=== PATIENT | female | born 1975 | race Caucasian/White ===

== ENCOUNTER → 2021-02-21 | Outpatient (CLI) | payer OTHER ==
[~2021-02-21] MED LIST: LORA10TA75 PO
== END | disposition home or self-care (01) ==
LOC: STAR 08:07
PROVIDERS: ATTEND Obstetrics & Gynecology
DX: Z20.822 Contact with and (suspected) exposure to COVID-19 (principal); N92.0 Excessive and frequent menstruation with regular cycle; N94.6 Dysmenorrhea, unspecified
CPT/HCPCS: U0003; U0005

== ENCOUNTER 2021-02-27 10:55 | Day surgery (SDC) | payer OTHER ==
[~2021-02-27] VITALS: Ht 172.7 cm; Wt 92.4 kg
[2021-02-27 11:12] VITALS: BP 121/85
[2021-02-27] MEDS ORDERED: ACETAMINOPHEN 500 MG TABLET ONE (11:27)
[2021-02-27] MEDS ORDERED: GABAPENTIN 300 MG CAPSULE ONE (11:28)
[2021-02-27] MEDS ORDERED: PHENAZOPYRIDINE 200 MG TABLET ONE (11:29)
[2021-02-27] MEDS ORDERED: GABAPENTIN 300 MG CAPSULE PO ONE (11:30)
[2021-02-27] MEDS ORDERED: LACTATED RINGERS 1,000 ML IV SCH (11:30)
[2021-02-27] MEDS ORDERED: CHLORHEXIDINE 15 ML UDC PO ONE (11:30)
[2021-02-27] MEDS ORDERED: PHENAZOPYRIDINE 200 MG TABLET PO ONE (11:30)
[2021-02-27] MEDS ORDERED: ACETAMINOPHEN 500 MG TABLET PO ONE (11:30)
[2021-02-27 11:32] LABS: HCG UR SG 1.015 (1.003-1.030)
[2021-02-27] MEDS ORDERED: FENTANYL PF 250 MCG/5ML ONE (11:57)
[2021-02-27] MEDS ORDERED: MIDAZOLAM 1 MG/ML, 2ML ONE (11:57)
[2021-02-27] MEDS ORDERED: PROPOFOL 10 MG/ML, 20ML ONE (11:59)
[2021-02-27] MEDS ORDERED: ROCURONIUM 10MG/ML,5ML ONE (12:00)
[2021-02-27] MEDS ORDERED: LIDOCAINE-MPF 2% ,5ML ONE (12:01)
[2021-02-27] MEDS ORDERED: BUPIVACAINE/PF 0.25% ONE (12:30)
[2021-02-27] MEDS ORDERED: EPINEPHRINE 1 MG/ML, 1ML ONE (12:30)
[2021-02-27] MEDS ORDERED: SODIUM CHLORIDE 0.9% 0 ML ONE (12:30)
[2021-02-27] MEDS ORDERED: VASOPRESSIN 20 UNIT/ML, 1ML ONE (12:31)
[2021-02-27] MEDS ORDERED: OXYcodone 5 MG/5 ML ORAL.SOL UDC PO PRN (13:00)
[2021-02-27] MEDS ORDERED: PROMETHAZINE 25 MG/ML, 1ML IVPush PRN (13:00)
[2021-02-27] MEDS ORDERED: HYDROmorphone 1 MG/ML, 1ML INJ IVPush PRN (13:00)
[2021-02-27] MEDS ORDERED: MEPERIDINE/PF 25MG/0.5ML IVPush PRN (13:00)
[2021-02-27] MEDS ORDERED: DIPHENHYDRAMINE 50 MG/ML, 1ML IVPush PRN (13:00)
[2021-02-27] MEDS ORDERED: ONDANSETRON 2MG/ML, 2ML IVPush PRN (13:00)
[2021-02-27] MEDS ORDERED: hydrALAzine 20 MG/ML, 1ML IV PRN (13:00)
[2021-02-27] MEDS ORDERED: FENTANYL PF 100 MCG/2ML IV PRN (13:00)
[2021-02-27] MEDS ORDERED: ACETAMINOPHEN 325 MG TABLET PO PRN (13:00)
[2021-02-27] MEDS ORDERED: DIAZEPAM 5 MG/ML, 2ML IVPush PRN (13:00)
[2021-02-27] MEDS ORDERED: LABETALOL 5MG/ML, 20ML IV PRN (13:00)
[2021-02-27] MEDS ORDERED: ONDANSETRON 2MG/ML, 2ML ONE (13:07)
[2021-02-27] MEDS ORDERED: DEXAMETHASONE 4 MG/ML, 1ML ONE ×2 (13:07)
[2021-02-27] MEDS ORDERED: CEFAZOLIN 1,000 MG ONE ×2 (13:07)
[2021-02-27] MEDS ORDERED: GLYCOPYRROLATE 0.2MG/1ML, 5ML ONE (16:15)
[2021-02-27] MEDS ORDERED: NEOSTIGMINE 1 MG/ML, 10ML ONE (16:15)
[2021-02-27] MEDS ORDERED: OXYcodone 5 MG/5 ML ORAL.SOL UDC ONE (17:12)
[2021-02-27] MEDS ORDERED: FENTANYL PF 100 MCG/2ML ONE (17:12)
== END 2021-02-27 20:10 | disposition home or self-care (01) ==
LOC: OUT 10:55
PROVIDERS: ATTEND Obstetrics & Gynecology
DX: N92.0 Excessive and frequent menstruation with regular cycle (principal); N94.6 Dysmenorrhea, unspecified; N80.0 Endometriosis of uterus; D25.9 Leiomyoma of uterus, unspecified; N83.8 Other noninflammatory disorders of ovary, fallopian tube and broad ligament; N73.6 Female pelvic peritoneal adhesions (postinfective); Z79.899 Other long term (current) drug therapy; Z83.3 Family history of diabetes mellitus; Z82.49 Family history of ischemic heart disease and other diseases of the circulatory system
CPT/HCPCS: 57283; 58554; 81025; 88307; J0171; J0690; J1100; J2250; J2405; J2704; J2710; J3010; J7120